=== PATIENT | male | born 1945 | race Two or more races ===

== ENCOUNTER 2019-07-16 23:03 | Inpatient (IN) | payer MEDICARE ==
[~2019-07-16] VITALS: Ht 182.9 cm; Wt 81.6 kg
[2019-07-16] MEDS ORDERED: MAGNESIUM HYDROXIDE 30 ML UDC PO PRN (23:30)
[2019-07-16] MEDS ORDERED: MAG HYDROX/AL HYDROX/SIMETH 30 ML UDC PO PRN (23:30)
[2019-07-16] MEDS ORDERED: BLOOD SUGAR DIAGNOSTIC 1 EACH STRIP IN ONE (23:30)
--- NOTE | 2019-07-16 23:30 | NUR ---
GPS ADMISSION NOTE: RECEIVED [place]. [place] [facility] [place] PT. ARRIVED IN THIS UNIT AT 2329 VIA GURNEY WITH 2 EMT STAFF. PT. ADMITTED ON 5150 HOLD FOR DTS. PER HOLD PT. TRIED TO OVERDOSE ON BLOOD PRESSURE MEDICATION BECAUSE HE IS UNABLE TO COPE WITH LONG HISTORY OF PTSD RELATED TO WAR AND ACUTE MEDICAL ISSUES. FAMILY UNABLE TO KEEP HIM SAFE. THE 5150 WAS REVIEWED AND THE DOCUMENTATION IN THE 5150 HOLD APPEARS TO REFLECT THE PRESENTATION OF PATIENT. UPON FACE TO FACE ASSESSMENT PATIENT IS NOTED TO BEING DISHEVELED AND ANXIOUS. PT IS CURRENTLY IN ROOM RESTING/SLEEPING. NO SIGNS OF ACUTE DISTRESS, BREATHING UNLABORED WITH EQUAL RISE AND FALL OF CHEST. PT. IS A/O X3 ON ROOM AIR. PT. DENIES SI/HI AT THIS TIME. PT. SIGNED PAPERWORK. ADVISED OF HOLD. PT. IS UNDER PSYCHIATRIC CARE OF DR. HOLT AND MEDICAL CARE OF DR. PINTO. PT. BELONGINGS WERE INVENTORIED AND CHECKED FOR CONTRABAND. PT CHARTING AND SKIN ASSESSMENT DONE. PT. ORIENTED TO ROOM, FLOOR, STAFF. PT EDUCATED USE OF CALL LIGHT. BED SIDE RAILS UP X2 FOR SAFETY, BED IN LOCKED POSITION, LOW POSITION. WILL CONTINUE TO MONITOR FOR SAFETY AND BEHAVIOR.
[2019-07-17] MEDS ORDERED: GUAIFENESIN/D-METHORPHAN HB 5 ML UDC PO PRN
[2019-07-17] MEDS: TEMAZEPAM 7.5 MG CAPSULE PO PRN (00:25)
--- NOTE | 2019-07-17 00:25 | NUR ---
GPS RN NOTE: INSOMNIA PT. C/O UNABLE TO SLEEP AND REQUESTED SLEEPING PILL. ADMINISTERED RESTORIL 7.5 MG PO PRN ORDERED. WILL CONTINUE TO MONITOR FOR SAFETY AND BEHAVIOR.
[2019-07-17] MEDS ORDERED: GABA-532 PO (00:35)
[2019-07-17] MEDS ORDERED: trazodone PO (00:35)
[2019-07-17] MEDS ORDERED: LEVE500T20 PO ×2 (00:35)
[2019-07-17] MEDS ORDERED: pantoprazole PO (00:35)
[2019-07-17] MEDS ORDERED: levothyroxine PO (00:35)
[2019-07-17] MEDS ORDERED: CEFU500T66 PO (00:35)
[2019-07-17] MEDS ORDERED: donepezil PO (00:35)
[2019-07-17] MEDS ORDERED: tolterodine PO (00:35)
[2019-07-17] MEDS ORDERED: FINA5TAB11 PO (00:35)
[2019-07-17] MEDS ORDERED: SIMV-49 PO (00:35)
[2019-07-17 02:19] VITALS: BP 120/80
[2019-07-17 07:27] LABS: BASOPHILS % (AUTO) 0.2 % (0.0-2.0); EOSINOPHILS % (AUTO) 0.2 % (0.0-6.0); HEMATOCRIT 37 % (39-51); HEMOGLOBIN 12.3 g/dL (13.5-17.5); LYMPHOCYTES # (AUTO) 1.5 /CMM (0.8-4.8); LYMPHOCYTES % (AUTO) 25.8 % (20.0-44.0); MEAN CORPUSCULAR HGB CONC 34 g/dl (31.0-36.0); MEAN CORPUSCULAR VOLUME 91 fL (80-96); MONOCYTES # (AUTO) 0.6 /CMM (0.1-1.30); MONOCYTES % (AUTO) 10.9 % (2.0-12.0); NEUTROPHILS # (AUTO) 3.6 /CMM (1.8-8.9); NEUTROPHILS % (AUTO) 62.9 % (43.0-81.0); PLATELET COUNT (AUTO) 85 /CMM (150-450); RED BLOOD CELL COUNT(AUTO) 4.04 MIL/uL (4.5-6.0); WHITE BLOOD COUNT (AUTO) 5.7 K/uL (4.3-11.0)
[2019-07-17 07:29] LABS: ALBUMIN 3.5 g/dL (3.4-5.0); BILIRUBIN,TOTAL 0.6 mg/dL (0.2-1.0); CALCIUM, SERUM 8.7 mg/dL (8.5-10.1); CREATININE 0.8 mg/dL (0.6-1.3); TOTAL PROTEIN, SERUM 6.7 g/dL (6.4-8.2)
[2019-07-17 07:36] LABS: CHOLESTEROL 154 mg/dL (<200); HDL CHOLESTEROL 62 mg/dL (40-60); LDL 78 mg/dL (0-99); TRIGLYCERIDES 59 mg/dL (30-150)
[2019-07-17 08:00] VITALS: BP 126/77
[2019-07-17] MEDS: LEVOTHYROXINE SODIUM 25 MCG TABLET PO SCH (08:19)
[2019-07-17] MEDS: FINASTERIDE (5 MG) 5 MG TABLET PO SCH (08:19)
[2019-07-17] MEDS: PANTOPRAZOLE 40 MG TABLET.DR PO SCH (08:19)
[2019-07-17] MEDS: GABAPENTIN 100 MG CAPSULE PO SCH ×3 (08:20→16:55)
[2019-07-17] MEDS: LEVETIRACETAM (250 MG) 250 MG TABLET PO SCH ×2 (08:20→17:03)
[2019-07-17 08:47] LABS: BAND % (MANUAL) 1 % (0.0-5.0); LYMPHOCYTES % (MANUAL) 32 % (16-48); MONOCYTES % (MANUAL) 6 % (0-11.0); NEUTROPHILS % (MANUAL) 61 (42-76)
[2019-07-17] MEDS: LORAZEPAM 0.5 MG TABLET PO PRN ×2 (09:18→16:55)
--- NOTE | 2019-07-17 13:12 | NUR ---
FAMILY CONTACT: JAMES contacted pts daughter Ellie ([phone]) for collateral information, discharge/treatment planing. JAMES was unable to leave a voicemail due to mailbox not being set up. JAMES will call back at a later time.
--- NOTE | 2019-07-17 13:14 | NUR ---
SUBSTANCE ABUSE INTERVENTION: SW completed a substance abuse intervention. Pt has been sober for 2 years and was unable to sign due to "his hands hurting."
--- NOTE | 2019-07-17 14:12 | NUR ---
INITIAL DISCHARGE PLAN: Pt wishes to return home [address] [address]. SW contacted pts daughter Ellie [phone] to confirm pt is able to return home and SW was unable to leave a voicemail due to daughter not having her voicemail set up. JAMES will help form a safe and proper discharge plan in collaboration with .
--- NOTE | 2019-07-17 15:14 | NUR ---
INDIVIDUAL INTERVENTION: SW attempted to meet with pt to discuss his symptoms of depression. Pt was asleep and not easily aroused by verbal cues.
[2019-07-17 16:00] VITALS: BP 105/78
[2019-07-17] MEDS: DONEPEZIL 5 MG TABLET PO SCH (17:03)
[2019-07-17 20:45] VITALS: BP 113/58
[2019-07-17] MEDS: TRAZODONE 50 MG TABLET PO SCH (21:25)
[2019-07-17] MEDS: TOLTERODINE 2 MG TABLET PO SCH (21:25)
[2019-07-17] MEDS: SIMVASTATIN 20 MG TABLET PO SCH (21:25)
[2019-07-18] MEDS: LEVOTHYROXINE SODIUM 25 MCG TABLET PO SCH (07:48)
[2019-07-18 08:00] VITALS: BP 102/71
[2019-07-18] MEDS: FINASTERIDE (5 MG) 5 MG TABLET PO SCH (08:34)
[2019-07-18] MEDS: LEVETIRACETAM (250 MG) 250 MG TABLET PO SCH ×2 (08:34→17:18)
[2019-07-18] MEDS: PANTOPRAZOLE 40 MG TABLET.DR PO SCH (08:34)
[2019-07-18] MEDS: GABAPENTIN 100 MG CAPSULE PO SCH ×3 (08:34→16:29)
[2019-07-18] MEDS ORDERED: SERTRALINE HCL 50 MG TABLET PO SCH (09:00)
--- NOTE | 2019-07-18 09:00 | NUR ---
RN NOTE- PT IN ROOM, FOCUSED ON FOOD AND MEDS. DENIES ALL, DIRECTABLE
[2019-07-18] MEDS: ACETAMINOPHEN 325 MG TABLET PO PRN ×2 (10:16→20:04)
[2019-07-18] MEDS: IBUPROFEN 400 MG TABLET PO PRN (14:15)
--- NOTE | 2019-07-18 14:17 | NUR ---
RN NOTE- MAULIK MOYA ORDERED IBUPROFEN 400 MG Q6 H PRN. FIRST DOSE GIVEN FOR LEG PAIN.
[2019-07-18 16:22] VITALS: BP 105/55
[2019-07-18] MEDS: DONEPEZIL 5 MG TABLET PO SCH (17:18)
--- NOTE | 2019-07-18 20:04 | NUR ---
GPS-RN NOTE: C/O HEADACHE PATIENT C/O HEADACHE ON A PAIN SCALE OF 3/10. PT IS REQUESTING FOR TYLENOL. MEDICATED TYLENOL ORDERED. WILL CONTINUE TO MONITOR FOR EFFECTIVENESS OF MEDICATION.
[2019-07-18 20:25] VITALS: BP 102/71
[2019-07-18 20:58] VITALS: BP 185/91
[2019-07-18] MEDS: TRAZODONE 50 MG TABLET PO SCH (21:03)
[2019-07-18] MEDS: TOLTERODINE 2 MG TABLET PO SCH (21:03)
[2019-07-18] MEDS: SIMVASTATIN 20 MG TABLET PO SCH (21:03)
[2019-07-18] MEDS: TEMAZEPAM 7.5 MG CAPSULE PO PRN (22:39)
--- NOTE | 2019-07-18 22:39 | NUR ---
GPS-RN NOTE: INSOMNIA PT. C/O UNABLE TO SLEEP AND REQUESTED SLEEPING PILL. ADMINISTERED RESTORIL 7.5 MG PO PRN ORDERED. WILL CONTINUE TO MONITOR FOR PATIENT'S SAFETY.
[2019-07-19 08:00] VITALS: BP 122/83
[2019-07-19] MEDS: GABAPENTIN 100 MG CAPSULE PO SCH ×3 (08:23→17:08)
[2019-07-19] MEDS: LEVOTHYROXINE SODIUM 25 MCG TABLET PO SCH (08:23)
[2019-07-19] MEDS: LEVETIRACETAM (250 MG) 250 MG TABLET PO SCH ×2 (08:23→17:08)
[2019-07-19] MEDS: PANTOPRAZOLE 40 MG TABLET.DR PO SCH (08:23)
[2019-07-19] MEDS: FINASTERIDE (5 MG) 5 MG TABLET PO SCH (08:23)
[2019-07-19] MEDS: SERTRALINE HCL 50 MG TABLET PO SCH (08:36)
--- NOTE | 2019-07-19 09:00 | NUR ---
RN NOTE- PT SLEEPING THIS MORNING, MED COMPLIANT WHEN AWAKENED ALL NEEDS ATTENDED FOCUS ON DC DENIES SI HI AH VH
[2019-07-19] MEDS: LORAZEPAM 0.5 MG TABLET PO PRN (13:12)
--- NOTE | 2019-07-19 13:13 | NUR ---
RN NOTE- PT W ANXIETY. ATIVAN 0.5 MG GIVEN
[2019-07-19 16:00] VITALS: BP 103/74
--- NOTE | 2019-07-19 16:15 | NUR ---
RN NOTE- INCREASED AGITATION RESTLESSNESS. ATIVAN 0.[address] AYALA [employer] DR BENITO. DC LAST DOSE. BEGIN ATIVAN 1 MG Q6PRN
[2019-07-19] MEDS: LORAZEPAM 1 MG TABLET PO PRN (16:18)
[2019-07-19] MEDS: IBUPROFEN 400 MG TABLET PO PRN (16:18)
--- NOTE | 2019-07-19 16:19 | NUR ---
RN NOTE- ANXIOUS AND C/O LEG PAIN. ATIVAN 1 MG AND MOTRIN 400 MG GIVEN
[2019-07-19] MEDS: DONEPEZIL 5 MG TABLET PO SCH (17:07)
[2019-07-19 20:00] VITALS: BP 116/68
[2019-07-19] MEDS: TRAZODONE 50 MG TABLET PO SCH (21:14)
[2019-07-19] MEDS: SIMVASTATIN 20 MG TABLET PO SCH (21:14)
[2019-07-19] MEDS: TOLTERODINE 2 MG TABLET PO SCH (21:14)
[2019-07-20] MEDS: LEVOTHYROXINE SODIUM 25 MCG TABLET PO SCH (07:30)
[2019-07-20 08:00] VITALS: BP 102/64
[2019-07-20] MEDS: LEVETIRACETAM (250 MG) 250 MG TABLET PO SCH ×2 (08:58→17:43)
[2019-07-20] MEDS: PANTOPRAZOLE 40 MG TABLET.DR PO SCH (08:58)
[2019-07-20] MEDS: FINASTERIDE (5 MG) 5 MG TABLET PO SCH (08:58)
[2019-07-20] MEDS: SERTRALINE HCL 50 MG TABLET PO SCH (08:58)
[2019-07-20] MEDS: GABAPENTIN 100 MG CAPSULE PO SCH ×3 (08:58→17:27)
[2019-07-20] MEDS: LORAZEPAM 1 MG TABLET PO PRN (10:11)
--- NOTE | 2019-07-20 10:11 | NUR ---
RN NOTE:PATIENT C/O ANXIETY MEDICATED WITH ATIVAN 1MG PO WILL CONTINUE TO MONITOR .
[2019-07-20] MEDS: ACETAMINOPHEN 325 MG TABLET PO PRN (10:33)
--- NOTE | 2019-07-20 10:33 | NUR ---
RN NOTE :PATIENT C/O BACK PAIN 09/04 MEDICATED WITH TYLENOL 650MG WILL CONTINUE TO MONITOR .
[2019-07-20 16:00] VITALS: BP 102/61
[2019-07-20] MEDS: DONEPEZIL 5 MG TABLET PO SCH (17:42)
[2019-07-20 20:38] VITALS: BP 104/57
[2019-07-20] MEDS: SIMVASTATIN 20 MG TABLET PO SCH (21:09)
[2019-07-20] MEDS: TOLTERODINE 2 MG TABLET PO SCH (21:09)
[2019-07-20] MEDS: TRAZODONE 50 MG TABLET PO SCH (21:09)
[2019-07-20] MEDS: TEMAZEPAM 7.5 MG CAPSULE PO PRN (23:38)
--- NOTE | 2019-07-20 23:38 | NUR ---
GPS RN NOTE: INSOMNIA PT. C/O UNABLE TO SLEEP. ADMINISTERED RESTORIL 7.5 MG PO PRN ORDERED. WILL CONTINUE TO MONITOR FOR SAFETY AND BEHAVIOR.
[2019-07-21 08:00] VITALS: BP 126/69
[2019-07-21] MEDS: LEVETIRACETAM (250 MG) 250 MG TABLET PO SCH ×2 (08:24→17:27)
[2019-07-21] MEDS: LEVOTHYROXINE SODIUM 25 MCG TABLET PO SCH (08:25)
[2019-07-21] MEDS: GABAPENTIN 100 MG CAPSULE PO SCH ×3 (08:25→17:22)
[2019-07-21] MEDS: FINASTERIDE (5 MG) 5 MG TABLET PO SCH (08:25)
[2019-07-21] MEDS: SERTRALINE HCL 50 MG TABLET PO SCH (08:25)
[2019-07-21] MEDS: LORAZEPAM 1 MG TABLET PO PRN ×2 (08:25→19:52)
[2019-07-21] MEDS: PANTOPRAZOLE 40 MG TABLET.DR PO SCH (08:25)
--- NOTE | 2019-07-21 08:25 | NUR ---
RN NOTE:PATIENT C/O ANXIETY MEDICATED WITH ATIVAN 1MG PO WILL CONTINUE TO MONITOR .
[2019-07-21] MEDS: DONEPEZIL 5 MG TABLET PO SCH (17:23)
--- NOTE | 2019-07-21 20:01 | NUR ---
GPS/RN NOTES: PT. IS AGITATED AND C/O FEELING ANXIOUS. PT. IS PACING AROUND THE ROOM. ADMINISTERED ATIVAN 1MG PO PRN ORDERED. TOLERATED WELL. VSS. WILL CONTINUE TO MONITOR ACCORDINGLY FOR SAFETY AND BEHAVIOR.
[2019-07-21 20:43] VITALS: BP 131/70
[2019-07-21] MEDS: TOLTERODINE 2 MG TABLET PO SCH (21:00)
[2019-07-21] MEDS: SIMVASTATIN 20 MG TABLET PO SCH (21:01)
[2019-07-21] MEDS: TRAZODONE 50 MG TABLET PO SCH (21:01)
--- NOTE | 2019-07-21 22:15 | NUR ---
GPS/RN NOTE: PT. C/O UNABLE TO SLEEP. ADMINISTERED RESTORIL 7.5 MG PO PRN ORDERED. WILL CONTINUE TO MONITOR FOR SAFETY AND BEHAVIOR.
[2019-07-21] MEDS: TEMAZEPAM 7.5 MG CAPSULE PO PRN (22:18)
[2019-07-22] MEDS: LEVOTHYROXINE SODIUM 25 MCG TABLET PO SCH (07:59)
[2019-07-22 08:00] VITALS: BP 118/74
[2019-07-22] MEDS: FINASTERIDE (5 MG) 5 MG TABLET PO SCH (08:14)
[2019-07-22] MEDS: LEVETIRACETAM (250 MG) 250 MG TABLET PO SCH ×2 (08:14→17:06)
[2019-07-22] MEDS: SERTRALINE HCL 50 MG TABLET PO SCH (08:14)
[2019-07-22] MEDS: GABAPENTIN 100 MG CAPSULE PO SCH ×3 (08:14→16:55)
[2019-07-22] MEDS: PANTOPRAZOLE 40 MG TABLET.DR PO SCH (08:15)
--- NOTE | 2019-07-22 09:21 | NUR ---
Family Contact: SW contacted pts daughter Ellie ([phone]) to discuss discharge/treatment planing. The call went straight to voicemail and the SW was unable to leave a voicemail due to mailbox not being set up.
--- NOTE | 2019-07-22 09:30 | NUR ---
AGENCY CONTACT: JAMES contacted [facility] [address] [address] and spoke with Kilo and informed him JAMES has been unable to get in contact with pts daughter and requested assistance. Kilo stated that he will contact the triage team and will possible provide transportation for pt and provide resources for him. JAMES informed him that pt lives at home with daughter and will be discharged within the next 2 days. Kilo stated he will return JAMES's call with an update.
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
[2019-07-22] MEDS: LORAZEPAM 1 MG TABLET PO PRN (15:03)
[2019-07-22] MEDS: IBUPROFEN 400 MG TABLET PO PRN (15:03)
--- NOTE | 2019-07-22 15:03 | NUR ---
RN NOTE: PAIN AND ANXIETY PT C/O ANXIETY AND BILAT LOWER LEG PAIN. REQUESTING MEDICATION. MEDICATED WITH MOTRIN PO PRN AND ATIVAN 1MG PO PRN
[2019-07-22] MEDS: DONEPEZIL 5 MG TABLET PO SCH (17:06)
[2019-07-22] MEDS: ACETAMINOPHEN 325 MG TABLET PO PRN (19:38)
--- NOTE | 2019-07-22 19:40 | NUR ---
GPS RN NOTES: AT 1930 PT COMPLAINED OF GENERALIZED BODY PAIN. TYLENOL 325MG 2 TABS GIVEN PO ORDERED. WILL CONTINUE TO MONITOR.
[2019-07-22 20:13] VITALS: BP 120/74
[2019-07-22] MEDS: TRAZODONE 50 MG TABLET PO SCH (21:38)
[2019-07-22] MEDS: TOLTERODINE 2 MG TABLET PO SCH (21:38)
[2019-07-22] MEDS: SIMVASTATIN 20 MG TABLET PO SCH (21:38)
[2019-07-23 08:00] VITALS: BP 124/65
--- NOTE | 2019-07-23 08:15 | NUR ---
medicated with tylenol 650 mg po for headache.
[2019-07-23] MEDS: IBUPROFEN 400 MG TABLET PO PRN (08:35)
[2019-07-23] MEDS: GABAPENTIN 100 MG CAPSULE PO SCH ×3 (08:35→17:48)
[2019-07-23] MEDS: LEVOTHYROXINE SODIUM 25 MCG TABLET PO SCH (08:35)
[2019-07-23] MEDS: LEVETIRACETAM (250 MG) 250 MG TABLET PO SCH ×2 (08:35→17:48)
[2019-07-23] MEDS: PANTOPRAZOLE 40 MG TABLET.DR PO SCH (08:35)
[2019-07-23] MEDS: FINASTERIDE (5 MG) 5 MG TABLET PO SCH (08:35)
--- NOTE | 2019-07-23 08:35 | NUR ---
medicated with motrin for generalized pain.
[2019-07-23] MEDS: SERTRALINE HCL 50 MG TABLET PO SCH (08:38)
[2019-07-23] MEDS ORDERED: ARIPIPRAZOLE 5 MG TABLET PO SCH (09:00)
--- NOTE | 2019-07-23 09:16 | NUR ---
Family Contact: JAMES called the pts daughter, Ellie ([phone]), and informed her that the SWs have been trying to give her a call to discuss the pts treatment. She stated that at first she was willing to have the pt return to their home but after hearing about his current behaviors she stated that she may want placement for him. She stated that she has been taking care of him for 10 years but that now she has a baby and cannot give him that much attention, he has been getting worse. JAMES then went over the pts medications with her and she expressed concern that he would have a seizure. JAMES stated that she will have the pts MD give her a call to discuss the medications.
[2019-07-23] MEDS ORDERED: QUETIAPINE FUMARATE 25 MG TABLET PO PRN (09:30)
[2019-07-23] MEDS: LORAZEPAM 1 MG TABLET PO PRN (11:08)
--- NOTE | 2019-07-23 11:08 | NUR ---
given ativan for anxiety.
--- NOTE | 2019-07-23 11:30 | NUR ---
INDIVIDUAL INTERVENTION: SW met with pt at bedside to discuss pts labile mood, isolation, and withdrawal. Pt was focused on wanting to know what his daughter discussed with . SW attempted refocus pts attention towards his isolation. SW discussed pt not participating in group activities and him remaining in his room. Pt became agitated pointing his finger at SW and shouting, "I do come out of my room. They don't let me go to the activities." SW asked pt who did not let him go to the activities and then he got up from his bed and walked out of his room towards the activity room. Pt has been needy and agitated and making suicidal statements then saying he is kidding and only doing it for attention. SW will continue to monitor for suicidal ideation.
--- NOTE | 2019-07-23 15:15 | NUR ---
SNF Referral: JAMES faxed a referral to [facility] with attn to Brandy to the fax number: [phone].
[2019-07-23 16:00] VITALS: BP 119/68
[2019-07-23] MEDS: DONEPEZIL 5 MG TABLET PO SCH (17:47)
[2019-07-23] MEDS: ACETAMINOPHEN 325 MG TABLET PO PRN (20:00)
[2019-07-23 20:05] VITALS: BP 114/73
[2019-07-23] MEDS: TRAZODONE 50 MG TABLET PO SCH (21:16)
[2019-07-23] MEDS: QUETIAPINE FUMARATE 100 MG TABLET PO SCH (21:16)
[2019-07-23] MEDS: PRAZOSIN HCL 1 MG CAPSULE PO SCH (21:17)
[2019-07-23] MEDS: SIMVASTATIN 20 MG TABLET PO SCH (21:17)
[2019-07-23] MEDS: TOLTERODINE 2 MG TABLET PO SCH (21:18)
[2019-07-24 08:00] VITALS: BP 129/69
[2019-07-24] MEDS: SERTRALINE HCL 50 MG TABLET PO SCH (08:37)
[2019-07-24] MEDS: LEVETIRACETAM (250 MG) 250 MG TABLET PO SCH ×2 (08:38→16:39)
[2019-07-24] MEDS: GABAPENTIN 100 MG CAPSULE PO SCH ×3 (08:38→16:39)
[2019-07-24] MEDS: FINASTERIDE (5 MG) 5 MG TABLET PO SCH (08:38)
[2019-07-24] MEDS: LEVOTHYROXINE SODIUM 25 MCG TABLET PO SCH (08:38)
[2019-07-24] MEDS: PANTOPRAZOLE 40 MG TABLET.DR PO SCH (08:38)
--- NOTE | 2019-07-24 14:55 | NUR ---
Individual Counseling: This SW met with the pt. at beside to facilitate counseling regarding positive coping mechanisms. The patient was asleep and was not easily rousable. Pt. will be invited to attend future therapeutic milieu.
[2019-07-24 16:00] VITALS: BP 102/59
[2019-07-24] MEDS: DONEPEZIL 5 MG TABLET PO SCH (16:39)
[2019-07-24] MEDS: IBUPROFEN 400 MG TABLET PO PRN (20:00)
[2019-07-24 20:42] VITALS: BP 116/61
[2019-07-24] MEDS: TRAZODONE 50 MG TABLET PO SCH (21:58)
[2019-07-24] MEDS: PRAZOSIN HCL 1 MG CAPSULE PO SCH (22:01)
[2019-07-24] MEDS: SIMVASTATIN 20 MG TABLET PO SCH (22:02)
[2019-07-24] MEDS: QUETIAPINE FUMARATE 100 MG TABLET PO SCH (22:02)
[2019-07-24] MEDS: TOLTERODINE 2 MG TABLET PO SCH (22:03)
[2019-07-24] MEDS: TEMAZEPAM 7.5 MG CAPSULE PO PRN (22:59)
[2019-07-25 08:18] VITALS: BP 92/45
[2019-07-25] MEDS: PANTOPRAZOLE 40 MG TABLET.DR PO SCH (08:28)
[2019-07-25] MEDS: SERTRALINE HCL 50 MG TABLET PO SCH (08:28)
[2019-07-25] MEDS: LEVOTHYROXINE SODIUM 25 MCG TABLET PO SCH (08:28)
[2019-07-25] MEDS: GABAPENTIN 100 MG CAPSULE PO SCH ×3 (08:29→17:33)
[2019-07-25] MEDS: FINASTERIDE (5 MG) 5 MG TABLET PO SCH (08:29)
[2019-07-25] MEDS: LEVETIRACETAM (250 MG) 250 MG TABLET PO SCH ×2 (08:29→17:35)
--- NOTE | 2019-07-25 08:53 | NUR ---
SNF Referral: JAMES faxed a referral to [facility] with attn to LISETTE and Esteban to the fax number: [phone].
--- NOTE | 2019-07-25 14:59 | NUR ---
Individual Counseling: This SW met with the pt. at beside to facilitate 1on1 counseling. Patient presented laying in be and appears disheveled and was alert and oriented x 4. The patient was receptive to meeting with SW. SW inquired about patient's mood. Patient stated he is "okay". Patient stated he is thinking about his discharge and wants to see his daughter, Ellie. Patient stated he is willing to go to a fci as long as that means progress to going home with daughter one day. SW provided verbal praise for being motivated and willing to make changes for a future goal. SW encouraged patient to participate inactivities today for at least 15 minutes. Patient stated, "Okay I will try". Pt. will be invited to attend future therapeutic milieu.
[2019-07-25 15:51] VITALS: BP 100/61
--- NOTE | 2019-07-25 16:16 | NUR ---
SNF Contact: LISETTE ([phone]), monitoring coordinator from [facility], called the SW and stated that the pt was accepted to their facility.
--- NOTE | 2019-07-25 16:19 | NUR ---
Family Contact: SW called the pts daughter, Ellie ([phone]), and informed her that the pt was accepted to a facility and that the SW will call her once there is a discharge date.
[2019-07-25] MEDS: DONEPEZIL 5 MG TABLET PO SCH (17:35)
[2019-07-25 20:13] VITALS: BP 129/56
[2019-07-25] MEDS: PRAZOSIN HCL 1 MG CAPSULE PO SCH (21:06)
[2019-07-25] MEDS: TOLTERODINE 2 MG TABLET PO SCH (21:07)
[2019-07-25] MEDS: TRAZODONE 50 MG TABLET PO SCH (21:07)
[2019-07-25] MEDS: SIMVASTATIN 20 MG TABLET PO SCH (21:08)
[2019-07-25] MEDS: QUETIAPINE FUMARATE 100 MG TABLET PO SCH (21:09)
[2019-07-25 22:16] VITALS: BP 112/62
[2019-07-25] MEDS: TEMAZEPAM 7.5 MG CAPSULE PO PRN (22:17)
--- NOTE | 2019-07-25 22:18 | NUR ---
GPS RN NOTES: INSOMNIA PT C/O UNABLE TO SLEEP. PT REQUESTED "SLEEPING MEDICATION." VITALS CHECKED WNL. NO S/S OF SOB. BREATHING EVEN AND UNLABORED. NO SOB. NO S/S OF PAIN AT THIS TIME. OFFERED RESTORIL 7.5 MG PO PRN ORDERED. PT AGREED AND TOLERATED MEDICATION WELL. CONTINUE TO MONITOR.
[2019-07-26] MEDS: LEVOTHYROXINE SODIUM 25 MCG TABLET PO SCH (07:48)
[2019-07-26] MEDS: FINASTERIDE (5 MG) 5 MG TABLET PO SCH (07:48)
[2019-07-26] MEDS: LEVETIRACETAM (250 MG) 250 MG TABLET PO SCH ×2 (07:48→17:28)
[2019-07-26] MEDS: GABAPENTIN 100 MG CAPSULE PO SCH ×3 (07:48→17:28)
[2019-07-26] MEDS: PANTOPRAZOLE 40 MG TABLET.DR PO SCH (07:48)
[2019-07-26] MEDS: SERTRALINE HCL 50 MG TABLET PO SCH (07:49)
[2019-07-26 08:00] VITALS: BP 103/56
[2019-07-26] MEDS: ACETAMINOPHEN 325 MG TABLET PO PRN (14:36)
[2019-07-26 16:00] VITALS: BP 155/77
[2019-07-26] MEDS: DONEPEZIL 5 MG TABLET PO SCH (17:28)
[2019-07-26 20:00] VITALS: BP 104/58
[2019-07-26] MEDS: TRAZODONE 50 MG TABLET PO SCH (21:19)
[2019-07-26] MEDS: PRAZOSIN HCL 1 MG CAPSULE PO SCH (21:25)
[2019-07-26] MEDS: QUETIAPINE FUMARATE 100 MG TABLET PO SCH (21:26)
[2019-07-26] MEDS: SIMVASTATIN 20 MG TABLET PO SCH (21:27)
[2019-07-26] MEDS: TOLTERODINE 2 MG TABLET PO SCH (21:28)
[2019-07-26] MEDS: TEMAZEPAM 7.5 MG CAPSULE PO PRN (22:47)
[2019-07-27] MEDS: LEVOTHYROXINE SODIUM 25 MCG TABLET PO SCH (07:24)
[2019-07-27 08:00] VITALS: BP 108/69
[2019-07-27] MEDS: LEVETIRACETAM (250 MG) 250 MG TABLET PO SCH ×2 (08:02→17:32)
[2019-07-27] MEDS: GABAPENTIN 100 MG CAPSULE PO SCH ×3 (08:02→16:41)
[2019-07-27] MEDS: FINASTERIDE (5 MG) 5 MG TABLET PO SCH (08:02)
[2019-07-27] MEDS: PANTOPRAZOLE 40 MG TABLET.DR PO SCH (08:02)
[2019-07-27] MEDS: SERTRALINE HCL 50 MG TABLET PO SCH (08:02)
--- NOTE | 2019-07-27 09:00 | NUR ---
RN NOTE- PT RESTING QUIETLY, AWAKENS EASILY MED COMPLIANT FOCUS ON DC AND SEEING DAUGHTER, DIRECTABLE DENIES SI HI AH VH PO INTAKE GOOD NEEDS ATTENDED
[2019-07-27 16:00] VITALS: BP 97/55
[2019-07-27] MEDS: DONEPEZIL 5 MG TABLET PO SCH (17:32)
[2019-07-27 19:42] VITALS: BP 95/50
[2019-07-27] MEDS: IBUPROFEN 400 MG TABLET PO PRN (20:17)
[2019-07-27] MEDS: SIMVASTATIN 20 MG TABLET PO SCH (21:12)
[2019-07-27] MEDS: QUETIAPINE FUMARATE 100 MG TABLET PO SCH (21:12)
[2019-07-27] MEDS: TRAZODONE 50 MG TABLET PO SCH (21:12)
[2019-07-27] MEDS: PRAZOSIN HCL 1 MG CAPSULE PO SCH (21:13)
[2019-07-27] MEDS: TOLTERODINE 2 MG TABLET PO SCH (21:22)
[2019-07-27] MEDS: TEMAZEPAM 7.5 MG CAPSULE PO PRN (21:28)
--- NOTE | 2019-07-27 21:56 | NUR ---
development administrator notes Routine meds given as well as his sleep medication per pt requested. Snacks also served. He is cooperative followed direction but seems anxious at time. Educate him regarding his medication the possible reaction and pt understood. kept him warm and comfortable at all times. will continue q 15 minutes monitoring for pt safety.
[2019-07-28] MEDS: LEVOTHYROXINE SODIUM 25 MCG TABLET PO SCH (07:28)
[2019-07-28 08:00] VITALS: BP 107/68
[2019-07-28] MEDS: PANTOPRAZOLE 40 MG TABLET.DR PO SCH (08:45)
[2019-07-28] MEDS: FINASTERIDE (5 MG) 5 MG TABLET PO SCH (08:45)
[2019-07-28] MEDS: LEVETIRACETAM (250 MG) 250 MG TABLET PO SCH ×2 (08:45→17:03)
[2019-07-28] MEDS: GABAPENTIN 100 MG CAPSULE PO SCH ×3 (08:45→17:03)
[2019-07-28] MEDS: SERTRALINE HCL 50 MG TABLET PO SCH (08:45)
--- NOTE | 2019-07-28 09:00 | NUR ---
RN NOTE- QUIET CALM MED COMPLIANT FOCUS ON DC AND SEEING DAUGHTER, DIRECTABLE DENIES SI HI AH VH PO INTAKE GOOD NEEDS ATTENDED
[2019-07-28] MEDS: LORAZEPAM 1 MG TABLET PO PRN (11:38)
--- NOTE | 2019-07-28 11:38 | NUR ---
RN NOTE-AGITATION/ PT YELLED AT END FINDER FORMING DEPARTMENT RESTLESS AGITATED. ATIVAN 1 MG GIVEN
[2019-07-28 16:00] VITALS: BP 100/52
[2019-07-28] MEDS: DONEPEZIL 5 MG TABLET PO SCH (17:03)
[2019-07-28 20:05] VITALS: BP 96/58
--- NOTE | 2019-07-28 20:06 | NUR ---
RN OPEN NOTES PATIENT IS LAYING IN BED. BED IS IN LOWEST LOCKED POSITION WITH SIDE RAILS UP. A/O X3. ON RA SATURATING AT 96%, NO SOB/ ACUTE RESPIRATORY DISTRESS NOTED. PATIENT IS CALM, COOPERATIVE, AND ISOLATIVE. WILL CONTINUE TO MONITOR Q15 MIN ROUNDS FOR SAFETY.
[2019-07-28] MEDS: QUETIAPINE FUMARATE 100 MG TABLET PO SCH (22:00)
[2019-07-28] MEDS: TRAZODONE 50 MG TABLET PO SCH (22:00)
[2019-07-28] MEDS: PRAZOSIN HCL 1 MG CAPSULE PO SCH (22:00)
[2019-07-28] MEDS: TOLTERODINE 2 MG TABLET PO SCH (22:10)
[2019-07-28] MEDS: SIMVASTATIN 20 MG TABLET PO SCH (22:10)
[2019-07-28 23:00] VITALS: BP 111/68
--- NOTE | 2019-07-28 23:00 | NUR ---
GPS-RN NOTE: MINIPRESS, SEROQUEL AND TRAZADONE SCHEDULED FOR TONIGHT NOT ADMINISTERED DUE TO BP 96/58. WILL CONTINUE TO MONITOR.
--- NOTE | 2019-07-29 06:31 | NUR ---
GPS RN CLOSE NOTES PATIENT IS SLEEPING IN BED. BED IS IN LOWEST LOCKED POSITION WITH SIDE RAILS UP. BED ALARM ON. NO SOB/ ACUTE RESPIRATORY DISTRESS NOTED. A/O X3. APPEARS COMFORTABLE/ NO COMPLAINTS OF PAIN AT THE MOMENT. WILL ENDORSE TO AM NURSE.
[2019-07-29] MEDS: LEVOTHYROXINE SODIUM 25 MCG TABLET PO SCH (07:28)
[2019-07-29 08:00] VITALS: BP 100/53
--- NOTE | 2019-07-29 08:28 | NUR ---
FAMILY CONTACT: SW called the pts daughter, Ellie ([phone]), and left a voicemail informing her pt will be discharged on this present day and provided her with SNF contact information.
[2019-07-29] MEDS: LEVETIRACETAM (250 MG) 250 MG TABLET PO SCH (08:37)
[2019-07-29] MEDS: FINASTERIDE (5 MG) 5 MG TABLET PO SCH (08:37)
[2019-07-29] MEDS: PANTOPRAZOLE 40 MG TABLET.DR PO SCH (08:37)
[2019-07-29] MEDS: SERTRALINE HCL 50 MG TABLET PO SCH (08:37)
[2019-07-29] MEDS: GABAPENTIN 100 MG CAPSULE PO SCH ×2 (08:37→12:02)
--- NOTE | 2019-07-29 08:46 | NUR ---
DISCHARGE NOTE: Pt discharging at 1:00pm via [facility] to [facility] [address] [place], [place], [address] . Pts daughter, Ellie ([phone]) has been notified via voicemail. Pts mood is anxious and paranoid with congruent affect. Pt denied visual/auditory hallucinations and denied suicidal/homicidal ideation. Pt will address his substance use with Psychiatrist Dr. Chapa Address: [address] [place] [address] and be under the care of [facility] Setter: Dr Ashraf Address: [address] [place] [address] . The multidisciplinary exit care form was done, printed, signed, and given to the patient.
--- NOTE | 2019-07-29 09:00 | NUR ---
RN NOTE- PT CALM DIRECTABLE POLITE NEEDS ATTENDED DENIES ALL DC TODAY
[2019-07-29] MEDS: IBUPROFEN 400 MG TABLET PO PRN (11:59)
--- NOTE | 2019-07-29 11:59 | NUR ---
RN NOTE- C/O PAIN NEUROPATHY. MOTRIN 400 MG GIVEN
[2019-07-29] MEDS: ACETAMINOPHEN 325 MG TABLET PO PRN (13:18)
--- NOTE | 2019-07-29 13:18 | NUR ---
RN NOTE- PT STILL W SOME DISCOMFORT FROM NEUROPATHY IN LEGS. TYLENOL 650 MG GIVEN AT THIS TIME
--- NOTE | 2019-07-29 14:00 | NUR ---
PRODUCTION HELPER NOTE- PT DC TO [facility] VIA GURNEY AND AMBULANCE. REPORT CALLED IN TO FACILITY. SPOKE Facundo JAMESON RN. DC INSTRUCTIONS GIVEN AND UNDERSTOOD. REVIEW OF CARE PLAN WITH AMBULANCE STAFF UNDERSTOOD. VS STABLE, PT DENIES SI HI AH VH. PT VALUABLES RETURNED, ID WRISTBAND REMOVED. ESCORTED OFF UNIT BY STAFF
== END 2019-07-29 14:00 | DRG 885 ==
LOC: GPS 23:03
PROVIDERS: ADMIT Psychiatry & Neurology Psychiatry; ATTEND Nurse Practitioner Acute Care
DX: F31.9 Bipolar disorder, unspecified (principal); D69.3 Immune thrombocytopenic purpura; F29 Unspecified psychosis not due to a substance or known physiological condition; F41.9 Anxiety disorder, unspecified; F43.10 Post-traumatic stress disorder, unspecified; G40.909 Epilepsy, unspecified, not intractable, without status epilepticus; F10.21 Alcohol dependence, in remission; F12.11 Cannabis abuse, in remission; E03.9 Hypothyroidism, unspecified; I10 Essential (primary) hypertension; G62.9 Polyneuropathy, unspecified; N40.0 Benign prostatic hyperplasia without lower urinary tract symptoms; Z87.820 Personal history of traumatic brain injury; Z79.899 Other long term (current) drug therapy; E78.5 Hyperlipidemia, unspecified; Z91.5 Personal history of self-harm; F03.90 Unspecified dementia, unspecified severity, without behavioral disturbance, psychotic disturbance, mood disturbance, and anxiety
CPT/HCPCS: 36415; 80053-TC; 80061-TC; 82962-TC; 84443-TC; 85025-TC; 87081-TC

== ENCOUNTER 2019-09-13 18:42 | Emergency (ER) | payer MEDICARE ==
[~2019-09-13] VITALS: Ht 182.9 cm; Wt 73.5 kg
[2019-09-13 18:43] VITALS: BP 130/73
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
--- NOTE | 2019-09-13 19:03 | NUR ---
PT BROUGHT BY RADIOLOGY TO CT
--- NOTE | 2019-09-13 19:16 | NUR ---
PT RETURNED FROM CT
--- NOTE | 2019-09-13 19:45 | NUR ---
[facility] ETA 2015
--- NOTE | 2019-09-13 20:06 | NUR ---
report given to yo branch at [facility]
--- NOTE | 2019-09-13 20:20 | NUR ---
pt left back to [facility] via private ambulance [facility] report given to ambulance staff. -sob, -cp. vss. all papers given to ambulance staff
== END 2019-09-13 20:34 ==
LOC: ER 18:45
DX: S09.8XXA Other specified injuries of head, initial encounter (principal); I10 Essential (primary) hypertension; N40.0 Benign prostatic hyperplasia without lower urinary tract symptoms; F43.10 Post-traumatic stress disorder, unspecified; F32.9 Major depressive disorder, single episode, unspecified; F41.9 Anxiety disorder, unspecified; Z98.890 Other specified postprocedural states; Z86.73 Personal history of transient ischemic attack (TIA), and cerebral infarction without residual deficits; Z79.899 Other long term (current) drug therapy; Y04.0XXA Assault by unarmed brawl or fight, initial encounter; Y93.89 Activity, other specified; Y92.89 Other specified places as the place of occurrence of the external cause; Y99.8 Other external cause status
CPT/HCPCS: 70450; 70486; 99285; A6410

== ENCOUNTER → 2019-09-13 | Emergency (ER) | payer MEDICARE ==
[~2019-09-13] MED LIST: CEFU500T66 PO; FINA5TAB11 PO; GABA-532 PO; LEVE500T20 PO; SIMV-49 PO; donepezil PO; levothyroxine PO; pantoprazole PO; tolterodine PO; trazodone PO
== END | disposition left against medical advice (07) ==
LOC: ER 18:33
DX: Z53.21 Procedure and treatment not carried out due to patient leaving prior to being seen by health care provider (principal)